=== PATIENT | female | born 1985 | race Caucasian/White ===

== ENCOUNTER 2017-12-05 12:15 | Emergency (ER) | payer SELFPAY ==
[~2017-12-05] VITALS: Ht 175.3 cm; Wt 154.2 kg
--- OUTSIDE RECORDS SUMMARY | 2017-12-05 12:27 | XMS REPORT | Referral Summary ---
Author Author [facility] Organization [facility] Address Unknown Phone Unavailable Care Team Providers Care Magazine Worker Name Role Phone No PCP, Pt States PCP Encounter VC Date(s): 09/02/15 - 09/02/15 [facility] [address] [place] [address] [place] Discharge Diagnosis: Gall bladder disease Discharge Disposition: 01-Home or Self Care Attending Physician: John Guy MD Admitting Physician: Vineet Meraz MD Vital Signs Most recent to 1 oldest [Reference Range]: Temperature Oral 36.5 degC [35.8-37.3 degC] (09/02/15 11:51 AM) Peripheral Pulse 80 bpm Rate [60-100 bpm] (09/02/15 11:51 AM) Heart Rate Monitored 57 bpm [60-100 bpm] *LOW* (09/02/15 10:53 AM) Respiratory Rate 18 br/min [14-20 br/min] (09/02/15 11:51 AM) Blood Pressure 134/61 mmHg [90-140/60-90 mmHg] (09/02/15 11:51 AM) Mean Arterial 87 mmHg Pressure, Cuff (09/02/15 10:53 AM) SpO2 98 % (09/02/15 11:51 AM) Problem List Condition Effective Dates Status Health Status Informant Cholelithiasis(Confi Active patient rmed) Bronchitis(Confirmed Resolved patient ) H/O Active patient vomiting(Confirmed) Tobacco Active patient user(Confirmed) Allergies, Adverse Reactions, Alerts Substance Reaction Severity Status amoxicillin Active Latex Mild Active Peanuts Mild Active Medications Benadryl 0 Refill(s) Start Date: 01/28/14 Status: Ordered ibuprofen 0 Refill(s) Start Date: 01/28/14 Status: Ordered ibuprofen 600 mg oral tablet 1 tabs, Oral, QID, # 20 tabs, 0 Refill(s) Start Date: 01/28/14 Status: Ordered ibuprofen 800 mg oral tablet 800 mg 1 tabs, Oral, TID, as needed for pain, # 30 tabs, 0 Refill(s) Start Date: 12/02/14 Status: Ordered Woodrow 5 mg-325 mg oral tablet 1 tabs, Oral, q6hr, as needed for pain, X 5 days, # 24 tabs, 0 Refill(s) Start Date: 09/02/15 Stop Date: 09/07/15 Status: Ordered Promethazine VC with Codeine oral syrup 5 mL, Oral, q6hr, as needed for cough, # 60 mL, 0 Refill(s) Start Date: 08/06/15 Stop Date: 08/06/16 Status: Ordered Zofran ODT 4 mg oral tablet, disintegrating 4 mg 1 tabs, Oral, q6hr, Nausea, # 20 tabs, 0 Refill(s) Start Date: 09/02/15 Status: Ordered Results Hematology Most recent to 1 oldest [Reference Range]: WBC [4.8-10.8 7.4 10*3/uL 10*3/uL] (09/02/15 8:12 AM) RBC [4.00-5.20] 3.81 *LOW* (09/02/15 8:12 AM) Hgb [12.0-16.0 11.5 gm/dL gm/dL] *LOW* (09/02/15 8:12 AM) Hct [37.0-47.0 %] 34.7 % *LOW* (09/02/15 8:12 AM) MCV [82.0-99.0 fL] 91.1 fL (09/02/15 8:12 AM) MCH [27.0-32.0 pg] 30.2 pg (09/02/15 8:12 AM) MCHC [32.0-36.0 33.1 gm/dL gm/dL] (09/02/15 8:12 AM) RDW [11.5-14.5 %] 13.7 % (09/02/15 8:12 AM) Platelet [150-400 225 10*3/uL 10*3/uL] (09/02/15 8:12 AM) MPV [9.4-12.4 fL] 10.7 fL (09/02/15 8:12 AM) Immature 0.1 % Granulocytes (09/02/15 8:12 AM) [0.0-1.0 %] Neutrophils [51-75 54 % %] (09/02/15 8:12 AM) Lymphocytes [20-46 37 % %] (09/02/15 8:12 AM) Monocytes [4-11 %] 7 % (09/02/15 8:12 AM) Eosinophils [0-4 %] 2 % (09/02/15 8:12 AM) Basophils [0-2 %] 1 % (09/02/15 8:12 AM) Neutro Absolute 4.02 10*3 [1.90-7.00 10*3] (09/02/15 8:12 AM) Lymph Absolute 2.73 10*3 [0.80-3.30 10*3] (09/02/15 8:12 AM) [place] Absolute 0.48 10*3 [0.30-1.00 10*3] (09/02/15 8:12 AM) Eos Absolute 0.11 10*3 [0.00-0.50 10*3] (09/02/15 8:12 AM) Baso Absolute 0.05 10*3 [0.00-0.20 10*3] (09/02/15 8:12 AM) Nucleated RBC 0.0 /100 WBC Automated [0 /100 (09/02/15 8:12 AM) WBC] Chemistry Most recent to 1 oldest [Reference Range]: Sodium Lvl [136-144 138 mEq/L mEq/L] (09/02/15 8:12 AM) Potassium Lvl 3.6 mEq/L [3.6-5.1 mEq/L] (09/02/15 8:12 AM) Chloride [99-109 105 mEq/L mEq/L] (09/02/15 8:12 AM) CO2 [22-32 mEq/L] 24 mEq/L (09/02/15 8:12 AM) AGAP [3-20] 9 (09/02/15 8:12 AM) BUN [4-20 mg/dL] 13 mg/dL (09/02/15 8:12 AM) Glucose Lvl [70-100 115 mg/dL mg/dL] *HI* (09/02/15 8:12 AM) Creatinine Lvl 0.74 mg/dL [0.44-1.03 mg/dL] (09/02/15 8:12 AM) eGFR [>60] >60 1 (09/02/15 8:12 AM) Calcium Lvl 9.1 mg/dL [8.6-10.0 mg/dL] (09/02/15 8:12 AM) Albumin Lvl [3.5-4.8 3.7 gm/dL gm/dL] (09/02/15 8:12 AM) Total Protein 6.4 gm/dL [6.1-7.9 gm/dL] (09/02/15 8:12 AM) Globulin [1.9-4.3 2.7 gm/dL gm/dL] (09/02/15 8:12 AM) ALT [14-54 U/L] 22 U/L (09/02/15 8:12 AM) AST [15-41 U/L] 20 U/L (09/02/15 8:12 AM) Alk Phos [26-104 55 U/L U/L] (09/02/15 8:12 AM) Bili Total [0.2-1.2 0.3 mg/dL 2 mg/dL] (09/02/15 8:12 AM) Lipase Lvl [8-48 26 U/L U/L] (09/02/15 8:12 AM) 1Result Comment: Multiply eGFR results by 1.21 for race. 2Result Comment: Naproxen, specifically the metabolite O-desmethylnaproxen, may cause spurious elevation in Total Bilirubin levels. Immunizations No data available for this section Procedures Procedure Date Related Diagnosis Body Site section Social History Social History Type Response Smoking Status Former smoker Assessment and Plan No data available for this section
--- OUTSIDE RECORDS SUMMARY | 2017-12-05 12:28 | XMS REPORT | Referral Summary ---
Author Author [facility] Organization [facility] Address Unknown Phone Unavailable Care Team Providers Care Customer Sales Specialist Name Role Phone No PCP, Pt States PCP Encounter VC Date(s): 05/10/15 - 05/10/15 [facility] [address] [place], [place] [address] Discharge Diagnosis: Allergic rhinitis Discharge Diagnosis: Cough Discharge Disposition: 01-Home or Self Care Attending Physician: Wilmer Adkins MD Admitting Physician: Wilmer Adkins MD Vital Signs Most recent to 1 oldest [Reference Range]: Temperature Oral 36.7 degC [35.8-37.3 degC] (05/10/15 1:38 PM) Peripheral Pulse 83 bpm Rate [60-100 bpm] (05/10/15 1:38 PM) Respiratory Rate 18 br/min [14-20 br/min] (05/10/15 1:38 PM) Blood Pressure 147/86 mmHg [90-140/60-90 mmHg] *HI* (05/10/15 1:38 PM) SpO2 99 % (05/10/15 1:38 PM) Problem List Condition Effective Dates Status Health Status Informant Cholelithiasis(Confi Active patient rmed) Bronchitis(Confirmed Resolved patient ) Tobacco Active patient user(Confirmed) Allergies, Adverse Reactions, Alerts No Known Allergies Medications Benadryl 0 Refill(s) Start Date: 01/28/14 Status: Ordered ibuprofen 0 Refill(s) Start Date: 01/28/14 Status: Ordered ibuprofen 600 mg oral tablet 1 tabs, Oral, QID, # 20 tabs, 0 Refill(s) Start Date: 01/28/14 Status: Ordered ibuprofen 800 mg oral tablet 800 mg 1 tabs, Oral, TID, as needed for pain, # 30 tabs, 0 Refill(s) Start Date: 12/02/14 Status: Ordered Results No data available for this section Immunizations No data available for this section Procedures Procedure Date Related Diagnosis Body Site section Social History Social History Type Response Smoking Status Former smoker Assessment and Plan No data available for this section
--- OUTSIDE RECORDS SUMMARY | 2017-12-05 12:28 | XMS REPORT | Referral Summary ---
Author Author [facility] Organization [facility] Address Unknown Phone Unavailable Care Team Providers Care Spray Gunner Name Role Phone No PCP, Pt States PCP Encounter VC Date(s): 04/17/15 - 04/17/15 [facility] [address] [place] [address]- Discharge Diagnosis: Acute pharyngitis Discharge Diagnosis: Acute headache Discharge Disposition: 01-Home or Self Care Attending Physician: Arnoldo Brown MD Admitting Physician: Arnoldo Brown MD Vital Signs Most recent to 1 oldest [Reference Range]: Temperature Oral 36.8 degC [35.8-37.3 degC] (04/17/15 7:45 PM) Peripheral Pulse 80 bpm Rate [60-100 bpm] (04/17/15 9:37 PM) Respiratory Rate 16 br/min [14-20 br/min] (04/17/15 9:37 PM) Blood Pressure 145/92 mmHg [90-140/60-90 mmHg] *HI* (04/17/15 9:37 PM) SpO2 100 % (04/17/15 9:37 PM) Problem List Condition Effective Dates Status Health Status Informant Cholelithiasis(Confi Active patient rmed) Bronchitis(Confirmed Resolved patient ) Tobacco Active patient user(Confirmed) Allergies, Adverse Reactions, Alerts No Known Allergies Medications amoxicillin 500 mg oral tablet 500 mg 1 tabs, Oral, TID, X 10 days, # 30 tabs, 0 Refill(s) Start Date: 04/17/15 Stop Date: 04/27/15 Status: Ordered Benadryl 0 Refill(s) Start Date: 01/28/14 Status: Ordered hyoscyamine 0.125 mg oral tablet 1 tabs, Oral, QID, as needed for spasm, # 12 tabs, 0 Refill(s) Start Date: 01/28/14 Status: Ordered ibuprofen 0 Refill(s) Start Date: 01/28/14 Status: Ordered ibuprofen 600 mg oral tablet 1 tabs, Oral, QID, # 20 tabs, 0 Refill(s) Start Date: 01/28/14 Status: Ordered ibuprofen 800 mg oral tablet 800 mg 1 tabs, Oral, TID, as needed for pain, # 30 tabs, 0 Refill(s) Start Date: 12/02/14 Status: Ordered Naprosyn 500 mg oral tablet 500 mg 1 tabs, Oral, q8hr, Pain, # 15 tabs, 0 Refill(s) Start Date: 01/28/15 Status: Ordered Results Chemistry Most recent to 1 oldest [Reference Range]: Sodium Venous 138 mEq/L [136-144 mEq/L] (04/17/15 8:32 PM) Potassium Venous 4.0 mEq/L 1 [3.6-5.1 mEq/L] (04/17/15 8:32 PM) Calcium Ionized 1.16 mmol/L Venous [1.19-1.41 *LOW* mmol/L] (04/17/15 8:32 PM) Total CO2 Venous 24 mEq/L [25-29 mEq/L] *LOW* (04/17/15 8:32 PM) HGB Venous NPT 13.3 gm/dL [12.0-16.0 gm/dL] (04/17/15 8:32 PM) HCT Venous 39.0 % [37.0-47.0 %] (04/17/15 8:32 PM) Glucose Venous 93 mg/dL [70-100 mg/dL] (04/17/15 8:32 PM) BUN Venous [4-20] 12 (04/17/15 8:32 PM) Creatinine Venous 0.9 mg/dL [0.4-1.0 mg/dL] (04/17/15 8:32 PM) Venous CL [99-109 102 mEq/L mEq/L] (04/17/15 8:32 PM) Anion Gap, Gerardo 12 [3-20] (04/17/15 8:32 PM) Screen, Negative Urine NPT (04/17/15 8:30 PM) 1Result Comment: This test was performed on a whole blood specimen. The presence or absence of hemolysis cannot be assessed. Hemolysis can falsely elevate potassium levels. Normals are for venous specimens only. Microbiology Reports TEST: Rapid Strep Group A STATUS: Auth (Verified) BODY SITE: SOURCE: Throat COLLECTED DATE/TIME: 04/17/15 8:38 PM Rapid Strep Group A Negative TEST: Group A Strep Culture STATUS: Order in Progress BODY SITE: SOURCE: Throat COLLECTED DATE/TIME: 04/17/15 8:38 PM Group A Strep Culture No Group A Strep (Strep pyogenes) isolated Immunizations No data available for this section Procedures No data available for this section Social History Social History Type Response Smoking Status Current every day smoker Assessment and Plan No data available for this section
--- OUTSIDE RECORDS SUMMARY | 2017-12-05 12:28 | XMS REPORT | Referral Summary ---
Author Author [facility] Organization [facility] Address Unknown Phone Unavailable Care Team Providers Care Curriculum Assistant Principal Name Role Phone No PCP, Pt States PCP Encounter VC Date(s): 04/17/15 - 04/17/15 [facility] [address] [place], [place] [address] Discharge Diagnosis: Acute pharyngitis Discharge Diagnosis: Acute headache Final: Acute pharyngitis, unspecified Final: Headache Final: Nicotine dependence, cigarettes, uncomplicated Discharge Disposition: 01-Home or Self Care Attending [...] Condition Effective Dates Status Health Status Informant Acute Active pain(Confirmed) At risk for Active falls(Confirmed)1 Cholelithiasis(Confi Active patient rmed) Bronchitis(Confirmed Resolved patient ) Fibromyalgia(Confirm Active patient ed) Gallbladder Active patient attack(Confirmed) H/O Active patient vomiting(Confirmed) Impaired skin Active integrity(Confirmed) 2 Tobacco Active patient user(Confirmed) 1This problem was added by Discern Expert. 2Problem added automatically by system based on initiation of Impaired Skin Integrity Plan of Care Allergies, Adverse Reactions, Alerts Substance Reaction Severity Status amoxicillin Active Latex Mild Active Nuts1 Rash Active Peanuts Mild Active Sodium Hypochlorite2 Rash Active 1PECANS 2BLEACH Medications gabapentin 300 mg, Oral, TID, Pain, 0 Refill(s) Start Date: 09/03/15 Status: Ordered Percocet 5/325 oral tablet 1-2 tabs, Oral, q4hr, Pain Moderate (4-6), 0 Refill(s) Start Date: 10/12/15 Status: Ordered traMADol 50 mg, Oral, TID, as needed for pain, 0 Refill(s) Start Date: 09/03/15 Status: Ordered Zantac 150 mg, Oral, BID, 0 Refill(s) Start Date: 09/03/15 Status: Ordered Results Chemistry Most recent to [...] Negative TEST: Group A Strep Culture STATUS: Auth (Verified) BODY SITE: SOURCE: Throat COLLECTED DATE/TIME: 04/17/15 8:38 PM Group A Strep Culture No Group A Strep (Strep pyogenes) isolated Immunizations No data available for this section Procedures Procedure Date Related Diagnosis Body Site Cholecystectomy Laparoscopic Resident1 10/12/15 section 1auto-populated from documented surgical case Social History Social History Type Response Smoking Status Former smoker Assessment and Plan No data available for this section
--- OUTSIDE RECORDS SUMMARY | 2017-12-05 12:28 | XMS REPORT | Referral Summary ---
Author Author [facility] Organization [facility] Address Unknown Phone Unavailable Care Team Providers Care Wind Development Director Name Role Phone No PCP, Pt States PCP PROVIDER, NOTINSYSTEM PCP Unavailable No PCP, Pt States PCP Encounter VC Date(s): 08/13/17 - 08/13/17 [facility] [address] [place] [address]- Encounter Diagnosis Viral URI with cough (Discharge Diagnosis) - 08/13/17 Diarrhea (Discharge Diagnosis) - 08/13/17 Vomiting (Discharge Diagnosis) - 08/13/17 Discharge Disposition: 01-Home or Self Care Attending Physician: Esa Johns DO Admitting Physician: Esa Johns DO Vital Signs Most recent to 1 oldest [Reference Range]: Temperature Oral 36.7 degC [35.8-37.3 degC] (08/13/17 9:40 AM) Peripheral Pulse 80 bpm Rate [60-100 bpm] (08/13/17 9:40 AM) Respiratory Rate 18 br/min [14-20 br/min] (08/13/17 10:50 AM) Blood Pressure 163/86 mmHg [90-140/60-90 mmHg] *HI* (08/13/17 9:40 AM) SpO2 98 % (08/13/17 9:40 AM) Problem List Condition Effective Dates Status [...] Status amoxicillin Active Latex Mild Active Nuts1 Rash..... Active Sodium Hypochlorite2 Rash..... Active Peanuts Mild Active 1PECANS 2BLEACH Medications gabapentin 300 mg, Oral, TID, Pain, 0 Refill(s) Start Date: 09/03/15 Status: Ordered Levsin SL 0.125 mg sublingual tablet 0.125 mg 1 tabs, SubLingual, q4hr, # 30 tabs, 0 Refill(s) Start Date: 05/22/17 Status: Ordered Percocet 5/325 oral tablet 1-2 tabs, Oral, q4hr, Pain Moderate (4-6), 0 Refill(s) Start Date: 10/12/15 Status: Ordered traMADol 50 mg, Oral, TID, as needed for pain, 0 Refill(s) Start Date: 09/03/15 Status: Ordered Zantac 150 mg, Oral, BID, 0 Refill(s) Start Date: 09/03/15 Status: Ordered Zofran ODT 4 mg oral tablet, disintegrating 4 mg 1 tabs, Oral, TID, Dr. domínguez supervising physician, # 10 tabs, 0 Refill(s) Start Date: 08/13/17 Status: Ordered Zofran ODT 4 mg oral tablet, disintegrating 4 mg 1 tabs, Oral, q8hr, Nausea, # 12 tabs, 0 Refill(s) Start Date: 05/22/17 Status: Ordered Results Hematology Most recent to 1 oldest [Reference Range]: WBC [4.8-10.8 5.2 10*3/uL 10*3/uL] (08/13/17 11:56 AM) RBC [4.00-5.20] 4.02 (08/13/17 11:56 AM) Hgb [12.0-16.0 12.5 gm/dL gm/dL] (08/13/17 11:56 AM) Hct [37.0-47.0 %] 37.7 % (08/13/17 11:56 AM) MCV [82.0-99.0 fL] 93.8 fL (08/13/17 11:56 AM) MCH [27.0-32.0 pg] 31.1 pg (08/13/17 11:56 AM) MCHC [32.0-36.0 33.2 gm/dL gm/dL] (08/13/17 11:56 AM) RDW [11.5-14.5 %] 13.8 % (08/13/17 11:56 AM) Platelet [150-400 242 10*3/uL 10*3/uL] (08/13/17 11:56 AM) MPV [9.4-12.4 fL] 10.8 fL (08/13/17 11:56 AM) Immature 0.0 % Granulocytes (08/13/17:56 AM) [0.0-1.0 %] Neutrophils [51-75 56 % %] (08/13/17 11:56 AM) Lymphocytes [20-46 30 % %] (08/13/17 11:56 AM) Monocytes [4-11 %] 11 % (08/13/17 11:56 AM) Eosinophils [0-4 %] 3 % (08/13/17:56 AM) Basophils [0-2 %] 0 % (08/13/17 11:56 AM) Neutro Absolute 2.90 [1.90-7.00] (08/13/17 11:56 AM) Lymph Absolute 1.57 [0.80-3.30] (08/13/17 11:56 AM) [place] Absolute 0.59 [0.30-1.00] (08/13/17 11:56 AM) Eos Absolute 0.13 [0.00-0.50] (08/13/17 11:56 AM) Baso Absolute 0.02 [0.00-0.20] (08/13/17 11:56 AM) Nucleated RBC 0.0 /100 WBC Automated [0 /100 (08/13/17 11:56 AM) WBC] Chemistry Most recent to 1 oldest [Reference Range]: Sodium Lvl [136-144 138 mEq/L mEq/L] (08/13/17 11:56 AM) Potassium Lvl 3.7 mEq/L [3.6-5.1 mEq/L] (08/13/17 11:56 AM) Chloride [99-109 103 mEq/L mEq/L] (08/13/17 11:56 AM) CO2 [22-32 mEq/L] 26 mEq/L (08/13/17 11:56 AM) AGAP [3-20 mEq/L] 9 mEq/L (08/13/17 11:56 AM) BUN [4-20 mg/dL] 8 mg/dL (08/13/17 11:56 AM) Glucose Lvl [70-100 94 mg/dL mg/dL] (08/13/17 11:56 AM) Creatinine Lvl 0.77 mg/dL [0.44-1.03 mg/dL] (08/13/17 11:56 AM) eGFR [>60 mL/min] >60 mL/min 1 (08/13/17 11:56 AM) Calcium Lvl 8.9 mg/dL [8.6-10.0 mg/dL] (08/13/17 11:56 AM) Albumin Lvl [3.5-4.8 3.8 gm/dL gm/dL] (08/13/17 11:56 AM) Total Protein 7.0 gm/dL [6.1-7.9 gm/dL] (08/13/17 11:56 AM) Globulin [1.9-4.3 3.2 gm/dL gm/dL] (08/13/17 11:56 AM) ALT [14-54 U/L] 48 U/L (08/13/17 11:56 AM) AST [15-41 U/L] 27 U/L (08/13/17 11:56 AM) Alk Phos [26-104 59 U/L U/L] (08/13/17 11:56 AM) Bili Total [0.2-1.2 0.4 mg/dL 2 mg/dL] (08/13/17 11:56 AM) Screen, Negative Urine NPT (08/13/17 11:57 AM) 1Result Comment: Multiply eGFR results by 1.21 for race. 2Result Comment: Naproxen, specifically the metabolite O-desmethylnaproxen, may cause spurious elevation in Total Bilirubin levels. Urinalysis Most recent to 1 oldest [Reference Range]: UA Color Yellow (08/13/17 11:56 AM) UA Appear Sl Cloudy (08/13/17 11:56 AM) UA pH [5.0-8.0] 5.0 (08/13/17 11:56 AM) UA Leuk Est Negative [Negative] (08/13/17 11:56 AM) UA Nitrite Negative [Negative] (08/13/17 11:56 AM) UA Protein Negative [Negative] (08/13/17 11:56 AM) UA Glucose Negative [Negative] (08/13/17 11:56 AM) UA Ketones Negative [Negative] (08/13/17 11:56 AM) UA Urobilinogen Negative [<1.0] (08/13/17 11:56 AM) UA Bili [Negative] Negative (08/13/17 11:56 AM) UA Blood [Negative] Negative (08/13/17 11:56 AM) UA Spec Grav 1.025 [1.003-1.030] (08/13/17 11:56 AM) Type Clean Catch (08/13/17 11:56 AM) Immunizations No data available for this section Procedures Procedure Date Related Diagnosis Body Site Status Cholecystectomy Laparoscopic Resident1 10/12/15 Completed section Completed 1auto-populated from documented surgical case Social History Social History Type Response Smoking Status Former smoker entered on: 05/10/15 Assessment and Plan No data available for this section
--- OUTSIDE RECORDS SUMMARY | 2017-12-05 12:28 | XMS REPORT | Referral Summary ---
Author Author [facility] Organization [facility] Address Unknown Phone Unavailable Care Team Providers Care Pension Manager Name Role Phone No PCP, Pt States PCP Encounter VC Date(s): 09/03/15 - 09/03/15 [facility] [address] [place] [address] [place] [phone] Discharge Diagnosis: Vomiting Discharge Diagnosis: Abdominal pain Discharge Disposition: 01-Home or Self Care Attending Physician: Vineet Meraz MD Admitting Physician: Vineet Meraz MD Vital Signs Most recent to 1 oldest [Reference Range]: Temperature Oral 36.6 degC [35.8-37.3 degC] (09/03/15 9:08 AM) Peripheral Pulse 87 bpm Rate [60-100 bpm] (09/03/15 10:55 AM) Respiratory Rate 16 br/min [14-20 br/min] (09/03/15 10:55 AM) Blood Pressure 110/69 mmHg [90-140/60-90 mmHg] (09/03/15 10:55 AM) SpO2 95 % (09/03/15 10:55 AM) Problem List Condition Effective Dates Status Health Status Informant Cholelithiasis(Confi Active patient rmed) Bronchitis(Confirmed Resolved patient ) Fibromyalgia(Confirm Active patient ed) Gallbladder Active patient attack(Confirmed) H/O Active patient vomiting(Confirmed) Tobacco Active patient user(Confirmed) Allergies, Adverse Reactions, Alerts Substance Reaction Severity Status amoxicillin Active Latex Mild Active Peanuts Mild Active Medications Benadryl 0 Refill(s) Start Date: 01/28/14 Status: Ordered gabapentin Oral, 0 Refill(s) Start Date: 09/03/15 Status: Ordered ibuprofen 0 Refill(s) Start Date: 01/28/14 Status: Ordered ibuprofen 600 mg oral tablet 1 tabs, Oral, QID, # 20 tabs, 0 Refill(s) Start Date: 01/28/14 Status: Ordered ibuprofen 800 mg oral tablet 800 mg 1 tabs, Oral, TID, as needed for pain, # 30 tabs, 0 Refill(s) Start Date: 12/02/14 Status: Ordered [place] 5 mg-325 mg oral tablet 1 tabs, Oral, q6hr, as needed for pain, X 5 days, # 24 tabs, 0 Refill(s) Start Date: 09/02/15 Stop Date: 09/07/15 Status: Ordered Promethazine VC with Codeine oral syrup 5 mL, Oral, q6hr, as needed for cough, # 60 mL, 0 Refill(s) Start Date: 08/06/15 Stop Date: 08/06/16 Status: Ordered traMADol Oral, 0 Refill(s) Start Date: 09/03/15 Status: Ordered Zantac 0 Refill(s) Start Date: 09/03/15 Status: Ordered Zofran ODT 4 mg oral tablet, disintegrating 4 mg 1 tabs, Oral, q6hr, Nausea, # 20 tabs, 0 Refill(s) Start Date: 09/02/15 Status: Ordered Results Hematology Most recent to 1 oldest [Reference Range]: WBC [4.8-10.8 8.1 10*3/uL 10*3/uL] (09/03/15 9:42 AM) RBC [4.00-5.20] 4.08 (09/03/15 9:42 AM) Hgb [12.0-16.0 12.4 gm/dL gm/dL] (09/03/15 9:42 AM) Hct [37.0-47.0 %] 37.7 % (09/03/15 9:42 AM) MCV [82.0-99.0 fL] 92.4 fL (09/03/15 9:42 AM) MCH [27.0-32.0 pg] 30.4 pg (09/03/15 9:42 AM) MCHC [32.0-36.0 32.9 gm/dL gm/dL] (09/03/15 9:42 AM) RDW [11.5-14.5 %] 13.5 % (09/03/15 9:42 AM) Platelet [150-400 218 10*3/uL 10*3/uL] (09/03/15 9:42 AM) MPV [9.4-12.4 fL] 10.6 fL (09/03/15 9:42 AM) Immature 0.1 % Granulocytes (09/03/15 9:42 AM) [0.0-1.0 %] Neutrophils [51-75 86 % %] *HI* (09/03/15:42 AM) Lymphocytes [20-46 7 % %] *LOW* (09/03/15 9:42 AM) Monocytes [4-11 %] 5 % (09/03/15 9:42 AM) Eosinophils [0-4 %] 1 % (09/03/15:42 AM) Basophils [0-2 %] 0 % (09/03/15 9:42 AM) Neutro Absolute 7.01 10*3 [1.90-7.00 10*3] *HI* (09/03/15 9:42 AM) Lymph Absolute 0.58 10*3 [0.80-3.30 10*3] *LOW* (09/03/15 9:42 AM) [place] Absolute 0.43 10*3 [0.30-1.00 10*3] (09/03/15 9:42 AM) Eos Absolute 0.07 10*3 [0.00-0.50 10*3] (09/03/15 9:42 AM) Baso Absolute 0.02 10*3 [0.00-0.20 10*3] (09/03/15 9:42 AM) Nucleated RBC 0.0 /100 WBC Automated [0 /100 (09/03/15 9:42 AM) WBC] Chemistry Most recent to 1 oldest [Reference Range]: Sodium Lvl [136-144 141 mEq/L mEq/L] (09/03/15 9:42 AM) Potassium Lvl 4.1 mEq/L [3.6-5.1 mEq/L] (09/03/15 9:42 AM) Chloride [99-109 106 mEq/L mEq/L] (09/03/15 9:42 AM) CO2 [22-32 mEq/L] 25 mEq/L (09/03/15 9:42 AM) AGAP [3-20] 10 (09/03/15 9:42 AM) BUN [4-20 mg/dL] 13 mg/dL (09/03/15 9:42 AM) Glucose Lvl [70-100 103 mg/dL mg/dL] *HI* (09/03/15 9:42 AM) Creatinine Lvl 0.75 mg/dL [0.44-1.03 mg/dL] (09/03/15 9:42 AM) eGFR [>60] >60 1 (09/03/15 9:42 AM) Calcium Lvl 9.0 mg/dL [8.6-10.0 mg/dL] (09/03/15 9:42 AM) Albumin Lvl [3.5-4.8 3.7 gm/dL gm/dL] (09/03/15 9:42 AM) Total Protein 6.7 gm/dL [6.1-7.9 gm/dL] (09/03/15 9:42 AM) Globulin [1.9-4.3 3.0 gm/dL gm/dL] (09/03/15 9:42 AM) ALT [14-54 U/L] 25 U/L (09/03/15 9:42 AM) AST [15-41 U/L] 20 U/L (09/03/15 9:42 AM) Alk Phos [26-104 54 U/L U/L] (09/03/15 9:42 AM) Bili Total [0.2-1.2 0.7 mg/dL 2 mg/dL] (09/03/15 9:42 AM) Lipase Lvl [8-48 24 U/L U/L] (09/03/15 9:42 AM) 1Result Comment: Multiply eGFR results by 1.21 for race. 2Result Comment: Naproxen, specifically the metabolite O-desmethylnaproxen, may cause spurious elevation in Total Bilirubin levels. Urinalysis Most recent to 1 oldest [Reference Range]: UA Color Yellow (09/03/15 9:42 AM) UA Appear Cloudy *ABN* (09/03/15 9:42 AM) UA pH [5.0-8.0] 8.0 (09/03/15 9:42 AM) UA Leuk Est Negative [Negative] (09/03/15 9:42 AM) UA Nitrite Negative [Negative] (09/03/15 9:42 AM) UA Protein Negative [Negative] (09/03/15 9:42 AM) UA Glucose Negative [Negative] (09/03/15 9:42 AM) UA Ketones Negative [Negative] (09/03/15 9:42 AM) UA Urobilinogen Negative [<1.0] (09/03/15 9:42 AM) UA Bili [Negative] Negative (09/03/15 9:42 AM) UA Blood [Negative] Negative (09/03/15 9:42 AM) UA Spec Grav 1.020 [1.003-1.030] (09/03/15 9:42 AM) Type Clean Catch (09/03/15 9:42 AM) Immunizations No data available for this section Procedures Procedure Date Related Diagnosis Body Site section Social History Social History Type Response Smoking Status Former smoker Assessment and Plan No data available for this section
--- OUTSIDE RECORDS SUMMARY | 2017-12-05 12:28 | XMS REPORT | Referral Summary ---
Author Author [facility] Organization [facility] Address Unknown Phone Unavailable Care Team Providers Care Outside Plant Field Engineer Name Role Phone No PCP, Pt States PCP Encounter VC SU [id number] Date(s): 10/12/15 - 10/13/15 [facility] [address] [place] [address] Discharge Disposition: 01-Home or Self Care Attending Physician: Bakari Castano MD Admitting Physician: Bakari Castano MD Vital Signs Most recent to 1 oldest [Reference Range]: Temperature Oral 36.6 degC [35.8-37.3 degC] (10/13/15 12:00 PM) Temperature Skin 36.3 degC [36-37 degC] (10/12/15 3:53 PM) Temperature Temporal 36.7 degC Artery [36.3-37.8 (10/12/15 6:00 PM) degC] Peripheral Pulse 90 bpm Rate [60-100 bpm] (10/13/15 12:00 PM) Heart Rate Monitored 51 bpm [60-100 bpm] *LOW* (10/12/15 7:05 PM) Respiratory Rate 18 br/min [14-20 br/min] (10/13/15 12:00 PM) Blood Pressure 130/73 mmHg [90-140/60-90 mmHg] (10/13/15 12:00 PM) Mean Arterial 94 mmHg Pressure, Cuff (10/12/15 7:05 PM) SpO2 98 % (10/13/15 12:00 PM) Problem List Condition Effective Dates Status [...] Most recent to 1 oldest [Reference Range]: Screen, Negative Urine NPT (10/12/15 8:47 AM) Blood Glucose, 94 mg/dL Capillary [70-100 (10/12/15 8:35 AM) mg/dL] Immunizations No data available for this section Procedures Procedure Date Related Diagnosis Body Site Cholecystectomy Laparoscopic Resident1 10/12/15 section 1auto-populated from documented surgical case Social History Social History Type Response Smoking Status Former smoker Assessment and Plan No data available for this section
--- OUTSIDE RECORDS SUMMARY | 2017-12-05 12:28 | XMS REPORT | Referral Summary ---
Author Author [facility] Organization [facility] Address Unknown Phone Unavailable Care Team Providers Care Mechanical Systems Designer Name Role Phone No PCP, Pt States PCP Encounter VC Date(s): 06/01/15 - 06/01/15 [facility] [address] [place], [place] [address] Discharge Diagnosis: Diarrhea Discharge Diagnosis: Nausea and vomiting Discharge Diagnosis: Dehydration Discharge Disposition: 01-Home or Self Care Attending Physician: Wilmer Adkins MD Admitting Physician: Wilmer Adkins MD Vital Signs Most recent to 1 oldest [Reference Range]: Temperature Oral 36.7 degC [35.8-37.3 degC] (06/01/15 8:20 PM) Peripheral Pulse 76 bpm Rate [60-100 bpm] (06/01/15 11:19 PM) Respiratory Rate 20 br/min [14-20 br/min] (06/01/15 11:19 PM) Blood Pressure 133/97 mmHg [90-140/60-90 mmHg] (06/01/15 10:29 PM) SpO2 100 % (06/01/15 11:19 PM) Problem List Condition Effective Dates Status Health Status Informant Cholelithiasis(Confi Active patient rmed) Bronchitis(Confirmed Resolved patient ) Tobacco Active patient user(Confirmed) Allergies, Adverse Reactions, Alerts Substance Reaction Severity Status amoxicillin Active Latex Mild Active Medications Benadryl 0 Refill(s) Start Date: 01/28/14 Status: Ordered ibuprofen 0 Refill(s) Start Date: 01/28/14 Status: Ordered ibuprofen 600 mg oral tablet 1 tabs, Oral, QID, # 20 tabs, 0 Refill(s) Start Date: 01/28/14 Status: Ordered ibuprofen 800 mg oral tablet 800 mg 1 tabs, Oral, TID, as needed for pain, # 30 tabs, 0 Refill(s) Start Date: 12/02/14 Status: Ordered ondansetron 4 mg oral tablet 4 mg 1 tabs, Oral, q4hr, Nausea or Vomiting, # 12 tabs, 0 Refill(s) Start Date: 06/01/15 Stop Date: 06/08/15 Status: Ordered Results Hematology Most recent to 1 oldest [Reference Range]: WBC [4.8-10.8 6.4 10*3/uL 10*3/uL] (06/01/15 10:16 PM) RBC [4.00-5.20] 4.16 (06/01/15 10:16 PM) Hgb [12.0-16.0 12.7 gm/dL gm/dL] (06/01/15 10:16 PM) Hct [37.0-47.0 %] 38.2 % (06/01/15 10:16 PM) MCV [82.0-99.0 fL] 91.8 fL (06/01/15 10:16 PM) MCH [27.0-32.0 pg] 30.5 pg (06/01/15 10:16 PM) MCHC [32.0-36.0 33.2 gm/dL gm/dL] (06/01/15 10:16 PM) RDW [11.5-14.5 %] 13.5 % (06/01/15 10:16 PM) Platelet [150-400 216 10*3/uL 10*3/uL] (06/01/15 10:16 PM) MPV [9.4-12.4 fL] 11.2 fL (06/01/15 10:16 PM) Immature 0.3 % Granulocytes (06/01/15 10:16 PM) [0.0-1.0 %] Neutrophils [51-75 74 % %] (06/01/15 10:16 PM) Lymphocytes [20-46 19 % %] *LOW* (06/01/15 10:16 PM) Monocytes [4-11 %] 6 % (06/01/15 10:16 PM) Eosinophils [0-4 %] 1 % (06/01/15 10:16 PM) Basophils [0-2 %] 0 % (06/01/15 10:16 PM) Neutro Absolute 4.69 10*3 [1.90-7.00 10*3] (06/01/15 10:16 PM) Lymph Absolute 1.23 10*3 [0.80-3.30 10*3] (06/01/15 10:16 PM) [place] Absolute 0.38 10*3 [0.30-1.00 10*3] (06/01/15 10:16 PM) Eos Absolute 0.04 10*3 [0.00-0.50 10*3] (06/01/15 10:16 PM) Baso Absolute 0.02 10*3 [0.00-0.20 10*3] (06/01/15 10:16 PM) Nucleated RBC 0.0 /100 WBC Automated [0 /100 (06/01/15 10:16 PM) WBC] Chemistry Most recent to 1 oldest [Reference Range]: Sodium Lvl [136-144 136 mEq/L mEq/L] (06/01/15 10:16 PM) Potassium Lvl 4.0 mEq/L [3.6-5.1 mEq/L] (06/01/15 10:16 PM) Chloride [99-109 103 mEq/L mEq/L] (06/01/15 10:16 PM) CO2 [22-32 mEq/L] 25 mEq/L (06/01/15 10:16 PM) AGAP [3-20] 8 (06/01/15 10:16 PM) BUN [4-20 mg/dL] 13 mg/dL (06/01/15 10:16 PM) Glucose Lvl [70-100 85 mg/dL mg/dL] (06/01/15 10:16 PM) Creatinine Lvl 0.75 mg/dL [0.44-1.03 mg/dL] (06/01/15 10:16 PM) eGFR [>60] >60 1 (06/01/15 10:16 PM) Calcium Lvl 9.0 mg/dL [8.6-10.0 mg/dL] (06/01/15 10:16 PM) Albumin Lvl [3.5-4.8 4.0 gm/dL gm/dL] (06/01/15 10:16 PM) Total Protein 7.0 gm/dL [6.1-7.9 gm/dL] (06/01/15 10:16 PM) Globulin [1.9-4.3 3.0 gm/dL gm/dL] (06/01/15 10:16 PM) ALT [14-54 U/L] 21 U/L (06/01/15 10:16 PM) AST [15-41 U/L] 17 U/L (06/01/15 10:16 PM) Alk Phos [26-104 54 U/L U/L] (06/01/15 10:16 PM) Bili Total [0.2-1.2 0.6 mg/dL 2 mg/dL] (06/01/15 10:16 PM) Lipase Lvl [8-48 23 U/L U/L] (06/01/15 10:16 PM) Screen, Negative Urine NPT (06/01/15 10:19 PM) 1Result Comment: Multiply eGFR results by 1.21 for race. 2Result Comment: Naproxen, specifically the metabolite O-desmethylnaproxen, may cause spurious elevation in Total Bilirubin levels. Urinalysis Most recent to 1 oldest [Reference Range]: UA Color Lt Yellow (06/01/15 10:16 PM) UA Appear Clear (06/01/15 10:16 PM) UA pH [5.0-8.0] 6.5 (06/01/15 10:16 PM) UA Leuk Est Negative [Negative] (06/01/15 10:16 PM) UA Nitrite Negative [Negative] (06/01/15 10:16 PM) UA Protein Negative [Negative] (06/01/15 10:16 PM) UA Glucose Negative [Negative] (06/01/15 10:16 PM) UA Ketones Negative [Negative] (06/01/15 10:16 PM) UA Urobilinogen Negative [<1.0] (06/01/15 10:16 PM) UA Bili [Negative] Negative (06/01/15 10:16 PM) UA Blood [Negative] Negative (06/01/15 10:16 PM) UA Spec Grav 1.031 [1.003-1.030] *HI* (06/01/15 10:16 PM) Type Clean Catch (06/01/15 10:16 PM) Immunizations No data available for this section Procedures Procedure Date Related Diagnosis Body Site section Social History Social History Type Response Smoking Status Former smoker Assessment and Plan No data available for this section
[2017-12-05 12:29] VITALS: BP 163/111
--- OUTSIDE RECORDS SUMMARY | 2017-12-05 12:29 | XMS REPORT | Referral Summary ---
Author Author [facility] Organization [facility] Address Unknown Phone Unavailable Care Team Providers Care Media Production Operator Name Role Phone No PCP, Pt States PCP Encounter VC Date(s): 08/06/15 - 08/06/15 [facility] [address] [place], [place] [address] Discharge Diagnosis: Acute vomiting Discharge Diagnosis: Acute bronchitis Discharge Disposition: 01-Home or Self Care Attending Physician: Esa Johns DO Admitting Physician: Esa Johns DO Vital Signs Most recent to 1 oldest [Reference Range]: Temperature Temporal 35.7 degC Artery [36.3-37.8 *LOW* degC] (08/06/15 9:55 AM) Peripheral Pulse 82 bpm Rate [60-100 bpm] (08/06/15 11:35 AM) Respiratory Rate 16 br/min [14-20 br/min] (08/06/15 11:35 AM) Blood Pressure 122/72 mmHg [90-140/60-90 mmHg] (08/06/15 11:35 AM) SpO2 98 % (08/06/15 11:35 AM) Problem List Condition Effective Dates Status [...] 0 Refill(s) Start Date: 12/02/14 Status: Ordered Promethazine VC with Codeine oral syrup 5 mL, Oral, q6hr, as needed for cough, # 60 mL, 0 Refill(s) Start Date: 08/06/15 Stop Date: 08/06/16 Status: Ordered Results No data available for this section Immunizations No data available for this section Procedures Procedure Date Related Diagnosis Body Site section Social History Social History Type Response Smoking Status Former smoker Assessment and Plan No data available for this section
--- OUTSIDE RECORDS SUMMARY | 2017-12-05 12:29 | XMS REPORT | Referral Summary ---
Author Author [facility] Organization [facility] Address Unknown Phone Unavailable Care Team Providers Care Blending Kettle Tender Name Role Phone PROVIDER, NOTINSYSTEM PCP Unavailable No PCP, Pt States PCP PROVIDER, NOTINSYSTEM PCP Unavailable No PCP, Pt States PCP Encounter [facility] [id number] Date(s): 08/21/17 - 08/22/17 [facility] [address] [place], [place] [address] Encounter Diagnosis Acute sinusitis (Discharge Diagnosis) - 08/22/17 Acute conjunctivitis of left eye (Discharge Diagnosis) - 08/22/17 Acute bronchitis (Discharge Diagnosis) - 08/22/17 Discharge Disposition: 01-Home or Self Care Attending Physician: Esa Johns DO Admitting Physician: Esa Johns DO Vital Signs Most recent to 1 oldest [Reference Range]: Temperature Oral 36.9 degC [35.8-37.3 degC] (08/21/17 10:55 PM) Peripheral Pulse 86 bpm Rate [60-100 bpm] (08/22/17 1:53 AM) Heart Rate Monitored 87 bpm [60-100 bpm] (08/22/17 1:15 AM) Respiratory Rate 19 br/min [14-20 br/min] (08/22/17 1:53 AM) Blood Pressure 141/83 mmHg [90-140/60-90 mmHg] *HI* (08/22/17 1:53 AM) Mean Arterial 105 mmHg Pressure, Cuff (08/22/17 1:15 AM) SpO2 100 % (08/22/17 1:53 AM) Problem List Condition Effective Dates Status [...] 0 Refill(s) Start Date: 10/12/15 Status: Ordered promethazine-codeine 6.25 mg-10 mg/5 mL oral syrup 5 mL, Oral, q6hr, as needed for cough, not to exceed 30 mL/24 hours, # 90 mL, 0 Refill(s) Start Date: 08/22/17 Stop Date: 08/22/18 Status: Ordered traMADol 50 mg, Oral, TID, [...] Refill(s) Start Date: 05/22/17 Status: Ordered Results No data available for [...]
--- OUTSIDE RECORDS SUMMARY | 2017-12-05 12:29 | XMS REPORT | Referral Summary ---
Author Author [facility] Organization [facility] Address Unknown Phone Unavailable Care Team Providers Care Press Room Supervisor Name Role Phone No PCP, Pt States PCP Encounter VC Date(s): 05/22/17 - 05/22/17 [facility] [address] [place], [place] [address] Discharge Diagnosis: Nausea, vomiting, and diarrhea Discharge Disposition: 01-Home or Self Care Attending Physician: Esa Johns DO Admitting Physician: Esa Johns DO Vital Signs Most recent to 1 oldest [Reference Range]: Temperature Oral 36.0 degC [35.8-37.3 degC] (05/22/17 7:26 PM) Peripheral Pulse 83 bpm Rate [60-100 bpm] (05/22/17 5:04 PM) Heart Rate Monitored 68 bpm [60-100 bpm] (05/22/17 7:26 PM) Respiratory Rate 20 br/min [14-20 br/min] (05/22/17 7:26 PM) Blood Pressure 169/101 mmHg [90-140/60-90 mmHg] *HI* (05/22/17 7:26 PM) Mean Arterial 130 mmHg Pressure, Cuff (05/22/17 7:26 PM) SpO2 100 % (05/22/17 7:26 PM) Problem List Condition Effective Dates Status [...] [Reference Range]: WBC [4.8-10.8 7.4 10*3/uL 10*3/uL] (05/22/17 5:45 PM) RBC [4.00-5.20] 4.10 (05/22/17 5:45 PM) Hgb [12.0-16.0 12.8 gm/dL gm/dL] (05/22/17 5:45 PM) Hct [37.0-47.0 %] 38.2 % (05/22/17 5:45 PM) MCV [82.0-99.0 fL] 93.2 fL (05/22/17 5:45 PM) MCH [27.0-32.0 pg] 31.2 pg (05/22/17 5:45 PM) MCHC [32.0-36.0 33.5 gm/dL gm/dL] (05/22/17 5:45 PM) RDW [11.5-14.5 %] 13.7 % (05/22/17 5:45 PM) Platelet [150-400 271 10*3/uL 10*3/uL] (05/22/17 5:45 PM) MPV [9.4-12.4 fL] 11.2 fL (05/22/17 5:45 PM) Immature 0.1 % Granulocytes (05/22/17 5:45 PM) [0.0-1.0 %] Neutrophils [51-75 71 % %] (05/22/17 5:45 PM) Lymphocytes [20-46 22 % %] (05/22/17 5:45 PM) Monocytes [4-11 %] 6 % (05/22/17 5:45 PM) Eosinophils [0-4 %] 1 % (05/22/17 5:45 PM) Basophils [0-2 %] 0 % (05/22/17 5:45 PM) Neutro Absolute 5.26 [1.90-7.00] (05/22/17 5:45 PM) Lymph Absolute 1.63 [0.80-3.30] (05/22/17 5:45 PM) [place] Absolute 0.42 [0.30-1.00] (05/22/17 5:45 PM) Eos Absolute 0.10 [0.00-0.50] (05/22/17 5:45 PM) Baso Absolute 0.02 [0.00-0.20] (05/22/17 5:45 PM) Nucleated RBC 0.0 /100 WBC Automated [0 /100 (05/22/17 5:45 PM) WBC] Chemistry Most recent to 1 oldest [Reference Range]: Sodium Lvl [136-144 137 mEq/L mEq/L] (05/22/17 5:45 PM) Potassium Lvl 3.7 mEq/L [3.6-5.1 mEq/L] (05/22/17 5:45 PM) Chloride [99-109 104 mEq/L mEq/L] (05/22/17 5:45 PM) CO2 [22-32 mEq/L] 26 mEq/L (05/22/17 5:45 PM) AGAP [3-20 mEq/L] 7 mEq/L (05/22/17 5:45 PM) BUN [4-20 mg/dL] 11 mg/dL (05/22/17 5:45 PM) Glucose Lvl [70-100 100 mg/dL mg/dL] (05/22/17 5:45 PM) Creatinine Lvl 0.90 mg/dL [0.44-1.03 mg/dL] (05/22/17 5:45 PM) eGFR [>60 mL/min] >60 mL/min 1 (05/22/17 5:45 PM) Calcium Lvl 9.1 mg/dL [8.6-10.0 mg/dL] (05/22/17 5:45 PM) Albumin Lvl [3.5-4.8 3.9 gm/dL gm/dL] (05/22/17 5:45 PM) Total Protein 7.0 gm/dL [6.1-7.9 gm/dL] (05/22/17 5:45 PM) Globulin [1.9-4.3 3.1 gm/dL gm/dL] (05/22/17 5:45 PM) ALT [14-54 U/L] 42 U/L (05/22/17 5:45 PM) AST [15-41 U/L] 30 U/L (05/22/17 5:45 PM) Alk Phos [26-104 55 U/L U/L] (05/22/17 5:45 PM) Bili Total [0.2-1.2 0.5 mg/dL 2 mg/dL] (05/22/17 5:45 PM) Lipase Lvl [8-48 17 U/L U/L] (05/22/17 5:45 PM) Screen, Negative Urine NPT (05/22/17 5:49 PM) 1Result Comment: Multiply eGFR results by 1.21 for race. 2Result Comment: Naproxen, specifically the metabolite O-desmethylnaproxen, may cause spurious elevation in Total Bilirubin levels. Urinalysis Most recent to 1 oldest [Reference Range]: UA Color Yellow (05/22/17 5:45 PM) UA Appear Sl Cloudy (05/22/17 5:45 PM) UA pH [5.0-8.0] 5.0 (05/22/17 5:45 PM) UA Leuk Est Negative [Negative] (05/22/17 5:45 PM) UA Nitrite Negative [Negative] (05/22/17 5:45 PM) UA Protein Pos 1+ [Negative] *ABN* (05/22/17 5:45 PM) UA Glucose Negative [Negative] (05/22/17 5:45 PM) UA Ketones Negative [Negative] (05/22/17 5:45 PM) UA Urobilinogen Negative [<1.0] (05/22/17 5:45 PM) UA Bili [Negative] Negative (05/22/17 5:45 PM) UA Blood [Negative] Pos 3+ *ABN* (05/22/17 5:45 PM) UA Spec Grav 1.025 [1.003-1.030] (05/22/17 5:45 PM) Type Clean Catch (05/22/17 5:45 PM) UA WBC [0-4] 2-5 (05/22/17 5:45 PM) UA RBC [0-2] 0-2 (05/22/17 5:45 PM) Epithelial Cells 2-5 (05/22/17 5:45 PM) UA Bacteria Rare (05/22/17 5:45 PM) UA Hyal Cast [0-3] 1-3 (05/22/17 5:45 PM) UA Mucous Present (05/22/17 5:45 PM) Immunizations No data available for this section Procedures Procedure Date Related Diagnosis Body Site Cholecystectomy Laparoscopic Resident1 10/12/15 section 1auto-populated from documented surgical case Social History Social History Type Response Smoking Status Former smoker entered on: 05/10/15 Assessment and Plan No data available for this section
--- OUTSIDE RECORDS SUMMARY | 2017-12-05 12:29 | XMS REPORT | Referral Summary ---
Author Author [facility] Organization [facility] Address Unknown Phone Unavailable Care Team Providers Care Car Ferry Master Name Role Phone No PCP, Pt States PCP Encounter VC Date(s): 01/28/15 - 01/28/15 [facility] [address] [place], [place] [address] Final: HEADACHE Discharge Diagnosis: PEREZ (headache) Discharge Disposition: 01-Home or Self Care Attending Physician: Hussein Ellison MD Admitting Physician: Hussein Ellison MD Vital Signs Most recent to 1 oldest [Reference Range]: Temperature Oral 36.8 degC [35.8-37.3 degC] (01/28/15 5:01 AM) Peripheral Pulse 73 bpm Rate [60-100 bpm] (01/28/15 5:01 AM) Respiratory Rate 18 br/min [14-20 br/min] (01/28/15 5:01 AM) Blood Pressure 128/69 mmHg [90-140/60-90 mmHg] (01/28/15 5:01 AM) SpO2 100 % (01/28/15 5:01 AM) Problem List Condition Effective Dates Status [...] 08/06/15 Stop Date: 08/06/16 Status: Ordered Results Hematology Most recent to 1 oldest [Reference Range]: WBC [4.8-10.8 6.9 10*3/uL 10*3/uL] (01/28/15 2:28 AM) RBC [4.00-5.20 4.26 10*6/uL 10*6/uL] (01/28/15 2:28 AM) Hgb [12.0-16.0 13.0 gm/dL gm/dL] (01/28/15 2:28 AM) Hct [37.0-47.0 %] 38.9 % (01/28/15 2:28 AM) MCV [82.0-99.0 fL] 91.3 fL (01/28/15 2:28 AM) MCH [27.0-32.0 pg] 30.5 pg (01/28/15 2:28 AM) MCHC [32.0-36.0 33.4 gm/dL gm/dL] (01/28/15 2:28 AM) RDW [11.5-14.5 %] 13.2 % (01/28/15 2:28 AM) Platelet [150-400 235 10*3/uL 10*3/uL] (01/28/15 2:28 AM) MPV [9.4-12.4 fL] 11.2 fL (01/28/15 2:28 AM) Immature 0.1 % Granulocytes (01/28/15 2:28 AM) [0.0-1.0 %] Neutrophils [51-75 60 % %] (01/28/15 2:28 AM) Lymphocytes [20-46 30 % %] (01/28/15 2:28 AM) Monocytes [4-11 %] 8 % (01/28/15 2:28 AM) Eosinophils [0-4 %] 1 % (01/28/15 2:28 AM) Basophils [0-2 %] 1 % (01/28/15 2:28 AM) Neutro Absolute 4.14 10*3 [1.90-7.00 10*3] (01/28/15 2:28 AM) Lymph Absolute 2.06 10*3 [0.80-3.30 10*3] (01/28/15 2:28 AM) [place] Absolute 0.56 10*3 [0.30-1.00 10*3] (01/28/15 2:28 AM) Eos Absolute 0.10 10*3 [0.00-0.50 10*3] (01/28/15 2:28 AM) Baso Absolute 0.04 10*3 [0.00-0.20 10*3] (01/28/15 2:28 AM) Chemistry Most recent to 1 oldest [Reference Range]: Sodium Lvl [136-144 141 mEq/L mEq/L] (01/28/15 2:28 AM) Potassium Lvl 3.6 mEq/L [3.6-5.1 mEq/L] (01/28/15 2:28 AM) Chloride [99-109 107 mEq/L mEq/L] (01/28/15 2:28 AM) CO2 [22-32 mEq/L] 25 mEq/L (01/28/15 2:28 AM) AGAP [3-20] 9 (01/28/15 2:28 AM) BUN [4-20 mg/dL] 13 mg/dL (01/28/15 2:28 AM) Glucose Lvl [70-100 96 mg/dL mg/dL] (01/28/15 2:28 AM) Creatinine Lvl 0.85 mg/dL [0.44-1.03 mg/dL] (01/28/15 2:28 AM) eGFR [>60] >60 1 (01/28/15 2:28 AM) Calcium Lvl 9.4 mg/dL [8.6-10.0 mg/dL] (01/28/15 2:28 AM) Albumin Lvl [3.5-4.8 4.1 gm/dL gm/dL] (01/28/15 2:28 AM) Total Protein 6.9 gm/dL [6.1-7.9 gm/dL] (01/28/15 2:28 AM) Globulin [1.9-4.3 2.8 gm/dL gm/dL] (01/28/15 2:28 AM) ALT [14-54 U/L] 32 U/L (01/28/15 2:28 AM) AST [15-41 U/L] 23 U/L (01/28/15 2:28 AM) Alk Phos [26-104 57 U/L U/L] (01/28/15 2:28 AM) Bili Total [0.2-1.2 0.4 mg/dL 2 mg/dL] (01/28/15 2:28 AM) U Beta hCG Ql Negative [Negative] (01/28/15 3:23 AM) 1Result Comment: Multiply eGFR results by 1.21 for race. 2Result Comment: Naproxen, specifically the metabolite O-desmethylnaproxen, may cause spurious elevation in Total Bilirubin levels. Urinalysis Most recent to 1 oldest [Reference Range]: UA Color Dk Yellow (01/28/15 3:23 AM) UA Appear Clear (01/28/15 3:23 AM) UA pH [5.0-8.0] 6.5 (01/28/15 3:23 AM) UA Leuk Est Negative [Negative] (01/28/15 3:23 AM) UA Nitrite Negative [Negative] (01/28/15 3:23 AM) UA Protein Negative [Negative] (01/28/15 3:23 AM) UA Glucose Negative [Negative] (01/28/15 3:23 AM) UA Ketones Negative [Negative] (01/28/15 3:23 AM) UA Urobilinogen Negative [<1.0] (01/28/15 3:23 AM) UA Bili [Negative] Negative (01/28/15 3:23 AM) UA Blood [Negative] Negative (01/28/15 3:23 AM) UA Spec Grav 1.033 [1.003-1.030] *HI* (01/28/15 3:23 AM) Type Clean Catch (01/28/15 3:23 AM) Immunizations No data available for this section Procedures Procedure Date Related Diagnosis Body Site section Social History Social History Type Response Smoking Status Former smoker Assessment and Plan No data available for this section
--- OUTSIDE RECORDS SUMMARY | 2017-12-05 12:29 | XMS REPORT | Referral Summary ---
Author Author [facility] Organization [facility] Address Unknown Phone Unavailable Care Team Providers Care Lean Six Sigma Senior Specialist Name Role Phone No PCP, Pt States PCP Encounter VC Date(s): 12/02/14 - 12/02/14 [facility] [address] [place], [place] [address] Final: Other chronic pain Final: PAIN IN JOINT INVOLVING LOWER LEG Discharge Diagnosis: Bilateral chronic knee pain Discharge Disposition: 01-Home or Self Care Attending Physician: Santi Barrera MD Admitting Physician: Santi Barrera MD Vital Signs Most recent to 1 oldest [Reference Range]: Temperature Oral 36.8 degC [35.8-37.3 degC] (12/02/14 7:25 PM) Peripheral Pulse 96 bpm Rate [60-100 bpm] (12/02/14 8:04 PM) Respiratory Rate 16 br/min [14-20 br/min] (12/02/14 8:04 PM) Blood Pressure 134/83 mmHg [90-140/60-90 mmHg] (12/02/14 8:04 PM) SpO2 100 % (12/02/14 8:04 PM) Problem List Condition Effective Dates Status [...]
--- OUTSIDE RECORDS SUMMARY | 2017-12-05 12:29 | XMS REPORT | Referral Summary ---
Author Author [facility] Organization [facility] Address Unknown Phone Unavailable Care Team Providers Care Civil Engineering Project Manager Name Role Phone No PCP, Pt States PCP Encounter VC Date(s): 09/17/15 - 09/17/15 [facility] [address] [place] [address] [phone] Discharge Diagnosis: Symptomatic cholelithiasis Discharge Disposition: 01-Home or Self Care Attending Physician: Johnathan Wilkerson JR, MD Admitting Physician: Lilia Byrd MD Vital Signs Most recent to 1 oldest [Reference Range]: Temperature Oral 36.1 degC [35.8-37.3 degC] (09/17/15 1:03 PM) Peripheral Pulse 88 bpm Rate [60-100 bpm] (09/17/15 1:03 PM) Respiratory Rate 24 br/min [14-20 br/min] *HI* (09/17/15 1:03 PM) Blood Pressure 156/64 mmHg [90-140/60-90 mmHg] *HI* (09/17/15 1:03 PM) Problem List Condition Effective Dates Status Health Status Informant Cholelithiasis(Confi Active patient rmed) Bronchitis(Confirmed Resolved patient ) Fibromyalgia(Confirm Active patient ed) Gallbladder Active patient attack(Confirmed) H/O Active patient vomiting(Confirmed) Tobacco Active patient user(Confirmed) Allergies, Adverse Reactions, Alerts Substance Reaction Severity Status amoxicillin Active Latex Mild Active Peanuts Mild Active Medications gabapentin Oral, 0 Refill(s) Start Date: 09/03/15 Status: Ordered ibuprofen 800 mg oral tablet 800 mg 1 tabs, Oral, TID, as needed for pain, # 30 tabs, 0 Refill(s) Start Date: 12/02/14 Status: Ordered traMADol Oral, 0 Refill(s) Start Date: 09/03/15 Status: Ordered Zantac 0 Refill(s) Start Date: 09/03/15 Status: Ordered Results No data available for this section Immunizations No data available for this section Procedures Procedure Date Related Diagnosis Body Site section Social History Social History Type Response Smoking Status Former smoker Assessment and Plan No data available for this section
--- OUTSIDE RECORDS SUMMARY | 2017-12-05 12:29 | XMS REPORT | Referral Summary ---
Author Author [facility] Organization [facility] Address Unknown Phone Unavailable Care Team Providers Care Optical Fabricator Name Role Phone No PCP, Pt States PCP Encounter VC Date(s): 10/25/15 - 10/25/15 [facility] [address], [place] [id number] Discharge Diagnosis: S/p laparoscopic cholecystectomy Discharge Disposition: 01-Home or Self Care Attending Physician: Lilia Byrd MD Vital Signs Most recent to 1 oldest [Reference Range]: Temperature Oral 36.4 degC [35.8-37.3 degC] (10/25/15 2:07 PM) Peripheral Pulse 88 bpm Rate [60-100 bpm] (10/25/15 2:07 PM) Respiratory Rate 24 br/min [14-20 br/min] *HI* (10/25/15 2:07 PM) Blood Pressure 138/60 mmHg [90-140/60-90 mmHg] (10/25/15 2:07 PM) Problem List Condition Effective Dates Status [...] Smoking Status Former smoker Assessment and Plan Extracted from: Title: Office Visit Note Author: Luis Singh MD Date: 10/25/15 Assessment/Plan Pt. is a 30 y/o M s/p lap bridget on 10/11 for chronic cholecystitis and cholelithiasis The incisions were healing well with no signs of infection. The patient was urged to not scratch the incisions. The pathology and operative reports were printed and given to the patient. The patient can follow up as needed if further surgical needs arise. The assessment and plan was discussed with Dr. Timur Stone who is in agreement at this time. I discussed the patient with the Resident/DIRECTOR PAYMENT/PA/RN/PharmD, reviewed the chart , and concur with the assessment and plan as above.
--- NOTE | 2017-12-05 12:36 | ED Integumentary General ---
General Stated Complaint: BITES ON BACK, POSSIBLE SPIDER Source: patient Exam Limitations: no limitations History of Present Illness Date Seen by Provider: Dec 05, 2017 Time Seen by Provider: 12:33 Initial Comments To ER with complaints of an insect bite to the left side of her upper back that she awakened with about 2 days ago. She denies having seen the insect. She states is very itchy, not painful. She is concerned that it may be a spider bite. Timing/Duration: just prior to arrival Severity: moderate Allergies and Home Medications Patient Home Medication List Home Medication List Reviewed: Yes Constitutional: see HPI EENTM: see HPI Respiratory: no symptoms reported Cardiovascular: no symptoms reported Genitourinary: no symptoms reported Musculoskeletal: no symptoms reported Skin: see HPI Psychiatric/Neurological: No Symptoms Reported Past Ckavyij-Qhcwop-Kutxvl Hx Patient Social History Recent Foreign Travel: No Contact w/Someone Who Travel: No Physical Exam Vital Signs Capillary Refill : General Appearance: WD/WN, no apparent distress HEENT: PERRL/EOMI, normal ENT inspection Neck: non-tender, full range of motion Respiratory: normal breath sounds, no respiratory distress, no accessory muscle use Gastrointestinal: non tender, soft Neurologic/Psychiatric: alert, normal mood/affect, oriented x 3 Skin: normal color, warm/dry, other (small 1 cm erythematous lesion well demarcated to the left upper back consistent with an insect bite. No area of necrosis or fluctuance or cellulitis.) Departure Impression Primary Impression: Insect bite Disposition: 01 HOME, SELF-CARE Condition: Stable Departure-Patient Inst. Decision time for Depature: 12:35 Referrals: NO,LOCAL PHYSICIAN (PCP) Primary Care Physician Patient Instructions: Insect Bites and Stings Add. Discharge Instructions: 1. This does not have the typical appearance of a spider bite. If this is very itchy you may apply any topical hydrocortisone cream. ANÍBAL THACKER APRN Dec 05, 2017 12:36
[2017-12-05] MEDS ORDERED: TRAMADOL (12:37)
== END 2017-12-05 12:41 | disposition home or self-care (01) ==
LOC: ER 12:23
DX: S20.462A Insect bite (nonvenomous) of left back wall of thorax, initial encounter (principal); W57.XXXA Bitten or stung by nonvenomous insect and other nonvenomous arthropods, initial encounter
CPT/HCPCS: 99282